=== PATIENT | male | born 1995 | race Caucasian/White ===

== ENCOUNTER 2019-03-01 11:25 | Inpatient (IN) | payer BC, OTHER ==
--- NOTE | 2019-03-01 11:43 | EDM.PDOC ---
ED HPI GENERAL MEDICAL PROBLEM - General Chief Complaint: ENT Problem Stated Complaint: sore throat Time Seen by Provider: 03/01/19 11:35 Source of Information: Reports: Patient, Old Records ([facility] EMR. No paper hospital chart available.) History Limitations: Reports: No Limitations - History of Present Illness INITIAL COMMENTS - FREE TEXT/NARRATIVE: The patient was brought to the emergency room via private automobile by his friends for evaluation of a 68 week history of a sharp 9/10 sore throat with patient apparently evaluated at the [facility] in [place] on 2 separate occasions, including 3 in 5 weeks ago with apparent negative strep screens in that facility. He denies any known exposure to infection, including strep, mono, etc. He has had some occasional fever and chills, however has not measured his temperature or taken any recent antipyretic medications. Patient did take some OTC Dayquil at 6 AM this morning. Patient has also had nonspecific polydipsia during the last 4 days with no history of gross hematuria , colic, or other UTI symptoms. The patient denies any chest pain/pressure, heart flutter, dizziness, orthostasis, orthopnea, diaphoresis, paresthesias, recent decreased exercise tolerance, or any other anginal-type symptoms. He does have a previous history of known hypertension, however, has been noncompliant with his medical therapy. No recent history of abdominal pain, heartburn, nausea, diarrhea, melena, gross hematochezia, or any food intolerance , including fatty foods, etc.,, although occasional emesis, including yesterday evening when coughing. The patient has had a greenish productive cough during the last several weeks with no wheezing, dyspnea, etc. Onset: Gradual Duration: Week(s): (as above), Constant, Getting Worse Location: Reports: Head (sore throat). Denies: Face, Neck, Chest, Abdomen, Back , Upper Extremity, Left, Upper Extremity, Right, Radiates to Quality: Reports: Same as Previous Episode, Sharp Severity: Severe Improves with: Reports: None Worsens with: Reports: None Context: Reports: Other (as above). Denies: Sick Contact, Trauma Associated Symptoms: Reports: Cough, cough w sputum, Fever/Chills, Nausea/ Vomiting. 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 [No Known Home Meds] 12/12/13 [History] Past Medical History HEENT History: Reports: Allergic Rhinitis, Impaired Vision, Other (See Below). Denies: Hard of Hearing, Otitis Media, Retinal Detachment Other HEENT History: recurrent strep throat. allergic rhinitis to pollen. Patient wears glasses. Cardiovascular History: Reports: Hypertension, Other (See Below). Denies: Afib , Aneurysm, Arrhythmia, Blood Clots/VTE/DVT, CAD, Heart Murmur, High Cholesterol , Syncope Other Cardiovascular History: He does not know his cholesterol status. Respiratory History: Reports: Bronchitis, Recurrent, Pneumonia, Recurrent. Denies: Asthma, COPD, Intubation, Previous, PE, Pneumothorax, Sleep Apnea, TB Gastrointestinal History: Reports: GERD. Denies: Celiac Disease, Cholelithiasis , Chronic Constipation, Chronic Diarrhea, GI Bleed, Hepatitis, Hiatal Hernia, Inflammatory Bowel Disease, Irritable Bowel Syndrome, Jaundice, Pancreatitis, PUD Genitourinary History: Denies: Acute Renal Failure, Chronic Renal Insuffiency, Renal Calculus, STD, Urinary Incontinence, UTI, Recurrent Musculoskeletal History: Reports: Fracture, Other (See Below). Denies: Amputation, Arthritis, Back Pain, Chronic, Gout, Neck Pain, Chronic, Osteoarthritis, RA, SLE Other Musculoskeletal History: right hand third, fourth and fifth metacarpal fractures on 08/29/17 with subsequent surgery as below; left wrist fracture at age 12 on 03/03/06. right wrist fracture at age 15. Neurological History: Reports: None. Denies: Cerebral Aneurysms, Concussion, CVA, Headaches, Chronic, Head Trauma, Migraines, MS, Seizure, TIA, Vertigo Psychiatric History: Reports: ADD, ADHD, Other (See Below). Denies: Abuse, Victim of, Anxiety, Depression, Psych Hospitalization(s), PTSD, Suicide Attempt , Suicidal Ideation Other Psychiatric History: no current medical therapy for ADHD. Endocrine/Metabolic History: Reports: None, Obesity/BMI 30+. Denies: Diabetes, Type I, Diabetes, Type II, Hypothyroidism, IDDM Hematologic History: Reports: None. Denies: Anemia, Blood Transfusion(s), Iron Deficiency Immunologic History: Reports: None. Denies: AIDS, HIV, SLE Oncologic (Cancer) History: Reports: None. Denies: Basal Cell Carcinoma, Hodgkin's Lymphoma, Leukemia, Lymphoma, Malignant Melanoma, Non-Hodgkin's Lymphoma, Squamous Cell Carcinoma Dermatologic History: Denies: Eczema, Psoriasis - Infectious Disease History Infectious Disease History: Reports: Meningitis (viral meningitis at 10 days of age.). Denies: C-Difficile, Chicken Pox, Measles, Mononucleosis, MRSA, Mumps, Pertussis (Whooping Cough), Rheumatic Fever, Rubella, Scarlet Fever, Shingles, TB, VRE - Past Surgical History Head Surgeries/Procedures: Reports: None HEENT Surgical History: Reports: Oral Surgery, Other (See Below). Denies: Adenoidectomy, Eye Surgery, Laser Surgery, LASIK, Myringotomy w Tube(s), Naso- Sinus Surgery, Tonsillectomy Other HEENT Surgeries/Procedures: [place] teeth extraction 4 on 06/05/18. Cardiovascular Surgical History: Reports: None. Denies: Varicose Respiratory Surgical History: Reports: None. Denies: Thoracentesis GI Surgical History: Reports: None. Denies: Appendectomy, Cholecystectomy, Colonoscopy, EGD, Hernia, Abdominal, Hernia, Inguinal, Hernia Repair/Other Male Surgical History: Reports: Circumcision, Other (See Below). Denies: Vasectomy Other Male Surgeries/Procedures: circumcision as an infant. Neurological Surgical History: Reports: None. Denies: C-Spine, Discectomy, Laminectomy, Lumbar Spine, Sacral Spine, Spinal Fusion, Thoracic Spine, Vertebroplasty Musculoskeletal Surgical History: Reports: ORIF, Other (See Below). Denies: Arthroscopic Procedure, Carpal Tunnel, Ganglion Cyst, Shoulder Surgery Other Musculoskeletal Surgeries/Procedures:: ORIF of right metacarpal fractures as above on 09/05/17. Oncologic Surgical History: Reports: None Dermatological Surgical History: Reports: None - Past Imaging History Past Imaging History: Reports: CAT Scan (CT of the abdomen and pelvis on ..) Social & Family History - Family History HEENT: Reports: None. Denies: Glaucoma, Macular Degeneration, Retinal Detachment Cardiac: Reports: Hypertension, Other (See Below). Denies: Afib, Aneurysm, Arrhythmia, Blood Clots/VTE/DVT, Bypass, CAD, Heart Failure, Heart Murmur, High Cholesterol, SC, PVD/COD, Stent, Syncope Other Cardiac Family History: hypertension in father and paternal grandfather. Respiratory: Reports: None. Denies: Asthma, COPD, PE, Pneumothorax, Sleep Apnea GI: Reports: None. Denies: Celiac Disease, Cholelithiasis, Colon Polyps, GERD, Inflammatory Bowel Disease, Irritable Bowel Syndrome, PUD : Reports: None. Denies: Renal Calculus, Renal Disease/Insufficiency OBGYN: Reports: None. Denies: Endometriosis, Recurrent Spontaneous Musculoskeletal: Reports: None. Denies: Arthritis, Gout, RA, SLE Neurological: Reports: None. Denies: Alzheimers Disease, Cerebral Aneurysms, CVA, Dementia, Migraines, MS, Parkinson's, Seizure, TIA Psychiatric: Reports: None. Denies: Abuse, Victim of, ADD, ADHD, Anxiety, Depression, Psych Hospitalization(s), PTSD, Suicide Attempt Endocrine/Metabolic: Reports: None. Denies: Diabetes, Type I, Diabetes, type II , Diabetes Mellitus, Type 3c, Hypothyroidism, IDDM Hematologic: Reports: None. Denies: Anemia, SLE Immunologic: Reports: None. Denies: AIDS, HIV, SLE Dermatologic: Reports: None. Denies: Eczema, Psoriasis Oncologic: Reports: None. Denies: Colon, Hodgkin's Lymphoma, Leukemia, Lymphoma , Non-Hodgkin's Lymphoma, Prostate, Skin - Tobacco Use Smoking Status *Q: Never Smoker Tobacco Use Within Last Twelve Months: No Used Tobacco, but Quit: No Smoking Cessation Information Provided To Patient: No Second Hand Smoke Exposure: No Second Hand Smoke Education Provided: No - Caffeine Use Caffeine Use: Reports: Coffee (1 cup 2 times per week any), Soda (3 cans per week). Denies: Energy Drinks, Tea - Alcohol Use Alcohol Use History: Yes Days Per Week of Alcohol Use: 2 Number of Drinks Per Day: 4 Number of Drinks Per Day Comment: usually beer. No previous DWIs, problems with alcohol abuse, etc. 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 ED EXAM, GENERAL - Physical Exam Exam: See Below Exam Limited By: No Limitations General Appearance: Alert, WD/WN, No Apparent Distress, Anxious (mild) Eye Exam: Bilateral Eye: EOMI, Normal Inspection (patient wearing glasses. No nystagmus), PERRL, Other (borderline scleral icterus) Ears: Normal External Exam (Scleral icterus), Normal Canal, Hearing Grossly Normal, Normal TMs Nose: Normal Inspection, Normal Mucosa, No Blood Throat/Mouth: Normal Lips, Normal Teeth, Normal Gums, Normal Voice, No Airway Compromise, Other (mild dry oral mucosa). No: Normal Oropharynx (+3 erythema and tonsillar enlargement with pinpoint white exudates but no peritonsillar abscess), Dysphagia, Perioral Cyanosis Head: Atraumatic, Normocephalic. No: Facial Swelling, Facial Tenderness, Sinus Tenderness Neck: Normal Inspection, Supple, Non-Tender, Full Range of Motion. No: Carotid Bruit, Lymphadenopathy (L), Lymphadenopathy (R), Thyromegaly Respiratory/Chest: No Respiratory Distress, Lungs Clear, Normal Breath Sounds, No Accessory Muscle Use, Chest Non-Tender. No: Pleural Rub, Retractions Cardiovascular: Normal Peripheral Pulses, No Edema, No Gallop, No JVD, No Murmur , No Rub, Tachycardia (regular rhythm). No: Diastolic Murmur, Gallop/S3, Gallop /S4, Friction Rub Peripheral Pulses: 2+: Radial (L), Radial (R), Dorsalis Pedis (L), Dorsalis Pedis (R) GI/Abdominal: Normal Bowel Sounds, Soft, Non-Tender, No Organomegaly, No Distention, No Abnormal Bruit, No Mass. No: Guarding (Male) Exam: Deferred Rectal (Males) Exam: Deferred Back Exam: Normal Inspection, Full Range of Motion. No: CVA Tenderness (L), CVA Tenderness (R), Muscle Spasm Extremities: Normal Inspection, Normal Range of Motion, Non-Tender, No Pedal Edema, Normal Capillary Refill. No: Wilman's Sign Neurological: Alert, Oriented, CN II-XII Intact, Normal Cognition, Normal Gait, No Motor/Sensory Deficits Psychiatric: Anxious (mild). No: Depressed Mood Skin Exam: Warm, Dry, Intact, Normal Color, No Rash, Stud(s) (auricles bilaterally), Tattoo(s) (multiple). No: Diaphoretic, Jaundice, Rash, Wound/ Incision Lymphatic: No Adenopathy Course - Vital Signs Text/Narrative:: Vital Signs - 24 hr 03/01/19 03/01/19 03/01/19 11:26 11:39 12:06 Temperature [ 37.4 C Oral] Pulse, 135 H Peripheral Pulse, 137 H Peripheral [ Left Brachial] Respiratory 16 Rate Blood Pressure 161/103 H Blood Pressure 154/108 H 161/103 H [Left Upper Arm ] O2 Sat by Pulse 98 Oximetry 03/01/19 03/01/19 03/01/19 12:15 12:27 12:30 Temperature [ Oral] Pulse, 114 H Peripheral Pulse, 111 H 116 H Peripheral [ Left Brachial] Respiratory 20 20 Rate Blood Pressure 164/107 H Blood Pressure 166/110 H 164/107 H [Left Upper Arm ] O2 Sat by Pulse 96 98 Oximetry 03/01/19 12:45 Temperature [ Oral] Pulse, Peripheral Pulse, 115 H Peripheral [ Left Brachial] Respiratory 25 H Rate Blood Pressure Blood Pressure 163/107 H [Left Upper Arm ] O2 Sat by Pulse 98 Oximetry Last Recorded V/S: Last Vital Signs Temp 37.4 C 03/01/19 11:26 Pulse 114 H 03/01/19 12:27 Resp 16 03/01/19 11:26 BP 164/107 H 03/01/19 12:27 Pulse Ox 98 03/01/19 11:26 - Orders/Labs/Meds Orders: Active Orders 24 hr Category Date Time Status Cardiac Monitoring [RC] . DIRECTED Care 03/01/19 11:44 Active Peripheral IV Care [RC] . DIRECTED Care 03/01/19 11:52 Active Abdomen Series w Chest 1V [CR] Routine Exams 03/01/19 12:00 Taken CULTURE BLOOD [BC] Stat Lab 03/01/19 11:45 Received CULTURE BLOOD [BC] Stat Lab 03/01/19 12:36 Received CULTURE STREP A CONFIRMATION [] Stat Lab 03/01/19 11:40 Results STREP SCRN A RAPID W CULT CONF [] Stat Lab 03/01/19 11:40 Results Lactated Ringers [Ringers, Lactated] 1,000 ml Med 03/01/19 12:06 Active IV .BOLUS Sodium Chloride 0.9% [Saline Flush] Med 03/01/19 11:52 Active 10 ml FLUSH ASDIRECTED PRN Blood Culture x2 Reflex Set [OM.PC] Urgent Oth 03/01/19 12:09 Ordered Obtain Past Medical Record [OM.PC] Routine Oth 03/01/19 11:43 Active Peripheral IV Insertion Adult [OM.PC] Routine Ot 03/01/19 11:52 Ordered Medication Orders Lactated Ringer's (Ringers, Lactated) 1,000 mls @ 999 mls/hr IV .BOLUS ONE Stop: 03/01/19 13:06 Last Admin: 03/01/19 12:15 Dose: 999 mls/hr Sodium Chloride (Saline Flush) 10 ml FLUSH ASDIRECTED PRN PRN Reason: Keep Vein Open Last Admin: 03/01/19 12:07 Dose: 10 ml Admin: 03/01/19 12:05 Dose: 10 ml Labs: Laboratory Tests 03/01/19 03/01/19 03/01/19 Range/Units 11:45 11:45 11:45 WBC 18.5 H (4.0-10.2) K/uL RBC 6.30 H (4.33-5.41) M/uL Hgb 18.2 H* D (13.1-16.8) g/dL Hct 52.5 H (39.0-49.0) % MCV 83.3 L (84.0-98.0) fL MCH 28.9 (28.2-33.3) pg MCHC 34.7 (31.7-36.0) g/dL RDW 16.5 H (11.2-14.1) % Plt Count 165 D (150-350) K/uL Neut % (Auto) 32.0 L (45.0-80.0) % Lymph % (Auto) 58.2 H (10.0-50.0) % [place] % (Auto) 9.4 (2.0-14.0) % Eos % (Auto) 0.1 (0.0-5.0) % Baso % (Auto) 0.3 (0.0-2.0) % Neut # (Auto) 5.92 (1.40-7.00) K/uL Lymph # (Auto) 10.79 H (0.50-3.50) K/uL [place] # (Auto) 1.75 H (0.00-1.00) K/uL Eos # (Auto) 0.02 (0.00-0.50) K/uL Baso # (Auto) 0.06 (0.00-0.20) K/uL Sodium 133 L (136-145) mmol/L Potassium 4.0 (3.5-5.1) mmol/L Chloride 97 L (98-107) mmol/L Carbon Dioxide 24.6 (21.0-32.0) mmol/L BUN 5 L (7-18) mg/dL Creatinine 0.88 (0.51-1.17) mg/dL Est Cr Clr Drug Dosing 145.74 mL/min Estimated GFR (MDRD) > 60 mL/min Glucose 105 (74-106) mg/dL Hemoglobin A1c 5.4 (4.3-5.7) % Lactic Acid (0.4-2.0) mmol/L Calcium 8.7 (8.5-10.1) mg/dL Total Bilirubin 3.6 H (0.2-1.0) mg/dL AST 174 H (15-37) U/L ALT 316 H (12-78) U/L Alkaline Phosphatase 225 H (46-116) IU/L Total Protein 8.3 H (6.4-8.2) g/dL Albumin 3.5 (3.4-5.0) g/dL TSH, Ultra Sensitive (0.358-3.740) mIU/mL Monoscreen (NEGATIVE) 03/01/19 03/01/19 03/01/19 Range/Units 11:45 11:45 11:45 WBC (4.0-10.2) K/uL RBC (4.33-5.41) M/uL Hgb (13.1-16.8) g/dL Hct (39.0-49.0) % MCV (84.0-98.0) fL MCH (28.2-33.3) pg MCHC (31.7-36.0) g/dL RDW (11.2-14.1) % Plt Count (150-350) K/uL Neut % (Auto) (45.0-80.0) % Lymph % (Auto) (10.0-50.0) % [place] % (Auto) (2.0-14.0) % Eos % (Auto) (0.0-5.0) % Baso % (Auto) (0.0-2.0) % Neut # (Auto) (1.40-7.00) K/uL Lymph # (Auto) (0.50-3.50) K/uL [place] # (Auto) (0.00-1.00) K/uL Eos # (Auto) (0.00-0.50) K/uL Baso # (Auto) (0.00-0.20) K/uL Sodium (136-145) mmol/L Potassium (3.5-5.1) mmol/L Chloride (98-107) mmol/L Carbon Dioxide (21.0-32.0) mmol/L BUN (7-18) mg/dL Creatinine (0.51-1.17) mg/dL Est Cr Clr Drug Dosing mL/min Estimated GFR (MDRD) mL/min Glucose (74-106) mg/dL Hemoglobin A1c (4.3-5.7) % Lactic Acid 1.3 (0.4-2.0) mmol/L Calcium (8.5-10.1) mg/dL Total Bilirubin (0.2-1.0) mg/dL AST (15-37) U/L ALT (12-78) U/L Alkaline Phosphatase (46-116) IU/L Total Protein (6.4-8.2) g/dL Albumin (3.4-5.0) g/dL TSH, Ultra Sensitive 0.875 (0.358-3.740) mIU/mL Monoscreen Positive H (NEGATIVE) Meds: Medications Generic Name Dose Route Start Last Admin Trade Name Freq PRN Reason Stop Dose Admin Lactated Ringer's 1,000 mls @ 999 mls/hr 03/01/19 12:06 03/01/19 12:15 Ringers, Lactated IV 03/01/19 13:06 999 mls/hr .BOLUS ONE Administration Sodium Chloride 10 ml 03/01/19 11:52 03/01/19 12:07 Saline Flush FLUSH 10 ml ASDIRECTED PRN Administration Keep Vein Open Discontinued Medications Generic Name Dose Route Start Last Admin Trade Name Freq PRN Reason Stop Dose Admin Methylprednisolone Sodium Succinate 125 mg 03/01/19 12:20 03/01/19 12:30 Solu-Medrol IVPUSH 03/01/19 12:21 125 mg ONETIME ONE Administration Metoprolol Succinate 50 mg 03/01/19 12:15 03/01/19 12:27 Toprol Xl PO 03/01/19 12:16 50 mg ONETIME ONE Administration Metoprolol Tartrate 5 mg 03/01/19 11:51 03/01/19 12:06 Lopressor IVPUSH 03/01/19 11:52 5 mg ONETIME ONE Administration Ondansetron HCl 4 mg 03/01/19 12:00 03/01/19 12:04 Zofran IVPUSH 03/01/19 12:01 4 mg ONETIME ONE Administration - Radiology Interpretation Free Text/Narrative:: heart monitor initially showed moderate sinus tachycardia with heart rate in the 140s to 150s with subsequent improvement to the 110s after medical therapy as below. No ectopy or arrhythmia. acute abdominal x-rays shows evidence of possible hepatomegaly with moderate diffuse nonspecific increased bowel gaseous pattern without free air, fluid levels, ileus, obstruction, cardiomegaly, CHF, pulmonary infiltrates, pneumothorax, etc. Departure - Departure Time of Disposition: 12:55 Disposition: Admitted As Inpatient 68 Condition: Good Clinical Impression: Elevated LFTs, Dehydration, Sinus tachycardia Mononucleosis Qualifiers: Infectious mononucleosis etiology: unspecified organism Infectious mononucleosis complication: other complications Qualified Code(s): B27.99 - Infectious mononucleosis, unspecified with other complication ADHD Qualifiers: Attention deficit-hyperactivity disorder type: predominantly inattentive Qualified Code(s): F90.0 - Attention-deficit hyperactivity disorder, predominantly inattentive type Hypertension Qualifiers: Hypertension type: essential hypertension Qualified Code(s): I10 - Essential ( primary) hypertension - Discharge Information *PRESCRIPTION DRUG MONITORING PROGRAM REVIEWED*: Not Applicable *COPY OF PRESCRIPTION DRUG MONITORING REPORT IN PATIENT [facility]: Not Applicable Forms: ED Department Discharge Care Plan Goals: See plan - Problem List & Annotations (1) Mononucleosis SNOMED Code(s): 342987385 Code(s): B27.90 - INFECTIOUS MONONUCLEOSIS, UNSPECIFIED WITHOUT COMPLICATION Status: Acute Priority: High Onset Date: ~03/01/19 Annotation/Comment: : symptoms have been present for 6 to 8 weeks as above. His significant other does have a history of mononucleosis, however no current symptoms. The patient was encouraged to have his significant other obtain a mononucleosis titer NOMI with other individuals also to be screened, if exposed. Secondary to significant LFTs elevation, significant clinical findings, etc. high-dose IV Solu-Medrol therapy was initiated in the emergency room. Only mild low-grade fever with no direct evidence of bacterial infection or indication for antibiotics at this time. Blood cultures x 2 were collected. Note negative strep screen. Qualifiers: Infectious mononucleosis etiology: unspecified organism Infectious mononucleosis complication: other complications Qualified Code(s): B27.99 - Infectious mononucleosis, unspecified with other complication (2) Elevated LFTs SNOMED Code(s): 729714379, 882620380 Code(s): R94.5 - ABNORMAL RESULTS OF LIVER FUNCTION STUDIES Status: Acute Priority: High Onset Date: 03/01/19 Annotation/Comment:: moderately elevated LFTs, including hyperbilirubinemia, likely secondary to his mononucleosis. Evidence of hepatomegaly by x-ray with ultrasound not available in this facility until next week.. Probable abdominal ultrasound on an outpatient basis with injury precautions to be given at discharge. Repeat blood work in the a.m. CT scan of the abdomen depending on his clinical course. (3) Dehydration SNOMED Code(s): 94219836 Code(s): E86.0 - DEHYDRATION Status: Acute Priority: High Onset Date: 03/01/19 Annotation/Comment:: 1 L IV bolus of lactated Ringer's given in the emergency room. Continue aggressive IV hydration during the initial phases of this hospitalization. (4) Sinus tachycardia SNOMED Code(s): 23138492 Code(s): R00.0 - TACHYCARDIA, UNSPECIFIED Status: Acute Priority: High Onset Date: 03/01/19 Annotation/Comment:: IV Lopressor and oral Toprol-XL given as above. In addition note aggressive IV hydration. Continue telemetry during initial phases of this hospitalization. (5) ADHD SNOMED Code(s): 689407451 Code(s): F90.9 - ATTENTION-DEFICIT HYPERACTIVITY DISORDER, UNSPECIFIED TYPE Status: Chronic Priority: Medium Annotation/Comment:: not currently under medical therapy. Stable by patient history. Observe for now. Qualifiers: Attention deficit-hyperactivity disorder type: predominantly inattentive Qualified Code(s): F90.0 - Attention-deficit hyperactivity disorder, predominantly inattentive type (6) Hypertension SNOMED Code(s): 75478982 Code(s): I10 - ESSENTIAL (PRIMARY) HYPERTENSION Status: Acute Priority: High Annotation/Comment:: significantly elevated blood pressure in the emergency room with IV Lopressor and oral Toprol-XL therapy initiated. Patient has long been noncompliant with previous medical therapy. Qualifiers: Hypertension type: essential hypertension Qualified Code(s): I10 - Essential (primary) hypertension - Problem List Review Problem List Initiated/Reviewed/Updated: Yes - My Orders Last 24 Hours: My Active Orders 03/01/19 11:40 CULTURE STREP A CONFIRMATION [RM] Stat STREP SCRN A RAPID W CULT CONF [RM] Stat 03/01/19 11:43 Obtain Past Medical Record [OM.PC] Routine 03/01/19 11:44 Cardiac Monitoring [RC] . DIRECTED 03/01/19 11:45 CULTURE BLOOD [BC] Stat 03/01/19 11:52 Peripheral IV Care [RC] . DIRECTED Sodium Chloride 0.9% [Saline Flush] 10 ml FLUSH ASDIRECTED PRN Peripheral IV Insertion Adult [OM.PC] Routine 03/01/19 12:00 Abdomen Series w Chest 1V [CR] Routine 03/01/19 12:06 Lactated Ringers [Ringers, Lactated] 1,000 ml IV .BOLUS 03/01/19 12:09 Blood Culture x2 Reflex Set [OM.PC] Urgent 03/01/19 12:36 CULTURE BLOOD [BC] Stat - Assessment/Plan Admission H&P: Please use this note as an admission H&P Last 24 Hours: My Active Orders 03/01/19 11:40 CULTURE STREP A CONFIRMATION [RM] Stat STREP SCRN A RAPID W CULT CONF [RM] Stat 03/01/19 11:43 Obtain Past Medical Record [OM.PC] Routine 03/01/19 11:44 Cardiac Monitoring [RC] . DIRECTED 03/01/19 11:45 CULTURE BLOOD [BC] Stat 03/01/19 11:52 Peripheral IV Care [RC] . DIRECTED Sodium Chloride 0.9% [Saline Flush] 10 ml FLUSH ASDIRECTED PRN Peripheral IV Insertion Adult [OM.PC] Routine 03/01/19 12:00 Abdomen Series w Chest 1V [CR] Routine 03/01/19 12:06 Lactated Ringers [Ringers, Lactated] 1,000 ml IV .BOLUS 03/01/19 12:09 Blood Culture x2 Reflex Set [OM.PC] Urgent 03/01/19 12:36 CULTURE BLOOD [BC] Stat Assessment:: as above Plan: as above. Extensive precautions were given to the patient, who is in agreement with the treatment plan. The patient will require about 3-4 days of inpatient/ acute care secondary to multiple health problems as above.
[2019-03-01] MEDS ORDERED: Metoprolol Tartrate 5 MG/5 ML SDV IVPUSH ONE (11:51)
[2019-03-01] MEDS ORDERED: Ondansetron 4 MG/2 ML SDV IVPUSH ONE (12:00)
[2019-03-01 12:03] LABS: HEMOGLOBIN A1C 5.4 % (4.3-5.7)
[2019-03-01] MEDS: Sodium Chloride 0.9% 10 ML Syringe FLUSH PRN ×2 (12:05→12:07)
[2019-03-01] MEDS ORDERED: Lactated Ringers 1,000 ML IV ONE (12:06)
[2019-03-01] MEDS ORDERED: Metoprolol Succinate 50 MG Tab.ER PO ONE (12:15)
[2019-03-01 12:17] LABS: CHLORIDE,CL 97 mmol/L (98-107); SODIUM,NA 133 mmol/L (136-145)
[2019-03-01] MEDS ORDERED: methylPREDNISolone Sodium Succinate 125 MG/2 ML SDV IVPUSH ONE (12:20)
[2019-03-01] MEDS ORDERED: Sodium Chloride 0.9% 10 ML Syringe FLUSH PRN (13:11)
[2019-03-01] MEDS ORDERED: Temazepam 15 MG Cap PO PRN (13:11)
[2019-03-01] MEDS ORDERED: Ondansetron 4 MG/2 ML SDV IVPUSH PRN (13:11)
[2019-03-01] MEDS ORDERED: Lidocaine 2% Viscous Solution 15 ML Cup PO PRN (13:15)
[2019-03-01] MEDS: Pantoprazole 40 MG Vial IVPUSH SCH (14:07)
[2019-03-01] MEDS: Lactated Ringers 1,000 ML IV SCH (14:07)
[2019-03-01] MEDS ORDERED: Labetalol 20 MG/4 ML Syringe IVPUSH ONE (21:11)
[2019-03-01] MEDS: Acetaminophen 325 MG Tab PO PRN (21:37)
[2019-03-01] MEDS: amLODIPine 5 MG Tab PO SCH (21:38)
[2019-03-02] MEDS: Sodium Chloride 0.9% 10 ML Syringe FLUSH PRN ×3 (00:08→23:08)
[2019-03-02] MEDS: methylPREDNISolone Sodium Succinate 125 MG/2 ML SDV IVPUSH SCH ×3 (00:08→23:08)
[2019-03-02] MEDS: Pantoprazole 40 MG Vial IVPUSH SCH ×2 (00:14→13:03)
[2019-03-02] MEDS: Lactated Ringers 1,000 ML IV SCH ×3 (00:14→23:07)
[2019-03-02 07:55] LABS: CHLORIDE,CL 101 mmol/L (98-107); SODIUM,NA 138 mmol/L (136-145)
[2019-03-02] MEDS ORDERED: Metoprolol Succinate 50 MG Tab.ER PO SCH (08:00)
[2019-03-02] MEDS ORDERED: Diatrizoate Meglumine/Diatrizoate Sodium 37% 30 ML Bottle PO ONE (08:49)
[2019-03-02] MEDS ORDERED: Metoprolol Succinate 25 MG Tab.ER PO ONE (08:51)
--- NOTE | 2019-03-02 08:59 | PCM.PN ---
- General Info Date of Service: 03/02/19 Admission Dx/Problem (Free Text): 1. Mononucleosis 2. LFTs elevation 3. Hypertension 4. Dehydration 5. Sinus tachycardia Functional Status: Reports: Pain Controlled, Tolerating Diet, Ambulating, Urinating. Denies: New Symptoms, Incentive Spirometry Pain Score: 0 - Review of Systems General: Reports: No Symptoms. Denies: Fever, Weakness, Fatigue, Malaise, Chills, Night Sweats, Appetite (Appetite good) HEENT: Reports: Sore Throat (Improved). Denies: Ear Pain, Eye Pain, Headaches, Post Nasal Drip, Sinus Congestion, Rhinitis, Visual Changes Pulmonary: Reports: No Symptoms. Denies: Shortness of Breath, Pleuritic Chest Pain, Cough, Sputum, Hemoptysis, Wheezing Cardiovascular: Reports: No Symptoms. Denies: Chest Pain, Palpitations, Dyspnea on Exertion, Orthopnea, PND, Edema, Lightheadedness Gastrointestinal: Reports: No Symptoms, Other (No bowel movement during this hospitalization to this point). Denies: Abdominal Pain, Constipation, Decreased Appetite, Diarrhea, Difficulty Swallowing, Flatus, Hematochezia, Melena, Nausea, Vomiting Genitourinary: Reports: No Symptoms. Denies: Dysuria, Frequency, Burning, Pain , Urgency, Hematuria, Retention, Flank Pain Musculoskeletal: Reports: No Symptoms. Denies: Neck Pain, Shoulder Pain, Arm Pain, Back Pain, Leg Pain Skin: Reports: No Symptoms. Denies: Jaundice, Diaphoresis, Bruising, Pruritis Neurological: Reports: No Symptoms. Denies: Confusion, Dizziness, Headache, Numbness, Paresthesia, Tingling, Tremors, Weakness Psychiatric: Reports: No Symptoms. Denies: Confusion, Depression, Anxiety, Agitation, Cravings, Hallucinations - Patient Data Vitals - Most Recent: Last Vital Signs Temp 36.1 C 03/02/19 04:45 Pulse 85 03/02/19 04:45 Resp 16 03/02/19 04:45 BP 158/87 H 03/02/19 04:45 Pulse Ox 96 03/02/19 04:45 Vital Signs - 24 hr 03/01/19 03/01/19 03/01/19 11:26 11:39 12:06 Temperature [ 37.4 C Oral] Temperature [ Temporal] Pulse, 135 H Peripheral Pulse, 137 H Peripheral [ Left Brachial] Pulse, Peripheral [ Left Pulse Oximetry] Respiratory 16 Rate Blood Pressure 161/103 H Blood Pressure 154/108 H 161/103 H [Left Upper Arm ] Blood Pressure [Right Upper Arm] O2 Sat by Pulse 98 Oximetry 03/01/19 03/01/19 03/01/19 12:15 12:27 12:30 Temperature [ Oral] Temperature [ Temporal] Pulse, 114 H Peripheral Pulse, 111 H 116 H Peripheral [ Left Brachial] Pulse, Peripheral [ Left Pulse Oximetry] Respiratory 20 20 Rate Blood Pressure 164/107 H Blood Pressure 166/110 H 164/107 H [Left Upper Arm ] Blood Pressure [Right Upper Arm] O2 Sat by Pulse 96 98 Oximetry 03/01/19 03/01/19 03/01/19 12:45 13:10 18:00 Temperature [ 36.3 C Oral] Temperature [ Temporal] Pulse, Peripheral Pulse, 115 H 114 H Peripheral [ Left Brachial] Pulse, Peripheral [ Left Pulse Oximetry] Respiratory 25 H 18 Rate Blood Pressure Blood Pressure 163/107 H [Left Upper Arm ] Blood Pressure 177/109 H [Right Upper Arm] O2 Sat by Pulse 98 97 95 Oximetry 03/01/19 03/02/19 03/02/19 21:38 00:00 04:45 Temperature [ 36.1 C Oral] Temperature [ 36.1 C Temporal] Pulse, Peripheral Pulse, Peripheral [ Left Brachial] Pulse, 90 85 Peripheral [ Left Pulse Oximetry] Respiratory 16 16 Rate Blood Pressure 175/105 H Blood Pressure [Left Upper Arm ] Blood Pressure 162/92 H 158/87 H [Right Upper Arm] O2 Sat by Pulse 96 96 Oximetry Weight - Most Recent: 101.469 kg I&O - Last 24 Hours: Intake & Output 03/01/19 03/02/19 03/02/19 22:59 06:59 14:59 Intake Total 2452 Output Total 1974 550 Balance -1974 1901 Imaging Impressions - Last 24 Hours: 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 Lab Results Last 24 Hours: Laboratory Results - last 24 hr 03/01/19 03/01/19 03/01/19 Range/Units 11:45 11:45 11:45 WBC 18.5 H (4.0-10.2) K/uL RBC 6.30 H (4.33-5.41) M/uL Hgb 18.2 H* D (13.1-16.8) g/dL Hct 52.5 H (39.0-49.0) % MCV 83.3 L (84.0-98.0) fL MCH 28.9 (28.2-33.3) pg MCHC 34.7 (31.7-36.0) g/dL RDW 16.5 H (11.2-14.1) % Plt Count 165 D (150-350) K/uL Neut % (Auto) 32.0 L (45.0-80.0) % Lymph % (Auto) 58.2 H (10.0-50.0) % [place] % (Auto) 9.4 (2.0-14.0) % Eos % (Auto) 0.1 (0.0-5.0) % Baso % (Auto) 0.3 (0.0-2.0) % Neut # (Auto) 5.92 (1.40-7.00) K/uL Lymph # (Auto) 10.79 H (0.50-3.50) K/uL [place] # (Auto) 1.75 H (0.00-1.00) K/uL Eos # (Auto) 0.02 (0.00-0.50) K/uL Baso # (Auto) 0.06 (0.00-0.20) K/uL PT (9.5-12.0) SEC INR APTT (21.0-31.3) SEC Sodium 133 L (136-145) mmol/L Potassium 4.0 (3.5-5.1) mmol/L Chloride 97 L (98-107) mmol/L Carbon Dioxide 24.6 (21.0-32.0) mmol/L BUN 5 L (7-18) mg/dL Creatinine 0.88 (0.51-1.17) mg/dL Est Cr Clr Drug Dosing 145.74 mL/min Estimated GFR (MDRD) > 60 mL/min Glucose 105 (74-106) mg/dL Hemoglobin A1c 5.4 (4.3-5.7) % Lactic Acid (0.4-2.0) mmol/L Calcium 8.7 (8.5-10.1) mg/dL Total Bilirubin 3.6 H (0.2-1.0) mg/dL Direct Bilirubin (0.0-0.2) mg/dL Indirect Bilirubin AST 174 H (15-37) U/L ALT 316 H (12-78) U/L Alkaline Phosphatase 225 H (46-116) IU/L Total Protein 8.3 H (6.4-8.2) g/dL Albumin 3.5 (3.4-5.0) g/dL Amylase (25-115) U/L Lipase (73-393) U/L TSH, Ultra Sensitive (0.358-3.740) mIU/mL Monoscreen (NEGATIVE) 03/01/19 03/01/19 03/01/19 Range/Units 11:45 11:45 11:45 WBC (4.0-10.2) K/uL RBC (4.33-5.41) M/uL Hgb (13.1-16.8) g/dL Hct (39.0-49.0) % MCV (84.0-98.0) fL MCH (28.2-33.3) pg MCHC (31.7-36.0) g/dL RDW (11.2-14.1) % Plt Count (150-350) K/uL Neut % (Auto) (45.0-80.0) % Lymph % (Auto) (10.0-50.0) % [place] % (Auto) (2.0-14.0) % Eos % (Auto) (0.0-5.0) % Baso % (Auto) (0.0-2.0) % Neut # (Auto) (1.40-7.00) K/uL Lymph # (Auto) (0.50-3.50) K/uL [place] # (Auto) (0.00-1.00) K/uL Eos # (Auto) (0.00-0.50) K/uL Baso # (Auto) (0.00-0.20) K/uL PT (9.5-12.0) SEC INR APTT (21.0-31.3) SEC Sodium (136-145) mmol/L Potassium (3.5-5.1) mmol/L Chloride (98-107) mmol/L Carbon Dioxide (21.0-32.0) mmol/L BUN (7-18) mg/dL Creatinine (0.51-1.17) mg/dL Est Cr Clr Drug Dosing mL/min Estimated GFR (MDRD) mL/min Glucose (74-106) mg/dL Hemoglobin A1c (4.3-5.7) % Lactic Acid 1.3 (0.4-2.0) mmol/L Calcium (8.5-10.1) mg/dL Total Bilirubin (0.2-1.0) mg/dL Direct Bilirubin (0.0-0.2) mg/dL Indirect Bilirubin AST (15-37) U/L ALT (12-78) U/L Alkaline Phosphatase (46-116) IU/L Total Protein (6.4-8.2) g/dL Albumin (3.4-5.0) g/dL Amylase (25-115) U/L Lipase (73-393) U/L TSH, Ultra Sensitive 0.875 (0.358-3.740) mIU/mL Monoscreen Positive H (NEGATIVE) 03/02/19 03/02/19 03/02/19 Range/Units 06:45 06:45 06:45 WBC 12.4 H (4.0-10.2) K/uL RBC 5.62 H (4.33-5.41) M/uL Hgb 16.8 (13.1-16.8) g/dL Hct 47.8 (39.0-49.0) % MCV 85.1 (84.0-98.0) fL MCH 29.9 (28.2-33.3) pg MCHC 35.1 (31.7-36.0) g/dL RDW 15.4 H (11.2-14.1) % Plt Count 175 (150-350) K/uL Neut % (Auto) 57.6 (45.0-80.0) % Lymph % (Auto) 35.9 (10.0-50.0) % [place] % (Auto) 6.2 (2.0-14.0) % Eos % (Auto) 0.0 (0.0-5.0) % Baso % (Auto) 0.3 (0.0-2.0) % Neut # (Auto) 7.15 H (1.40-7.00) K/uL Lymph # (Auto) 4.46 H (0.50-3.50) K/uL [place] # (Auto) 0.77 (0.00-1.00) K/uL Eos # (Auto) 0.00 (0.00-0.50) K/uL Baso # (Auto) 0.04 (0.00-0.20) K/uL PT 12.0 (9.5-12.0) SEC INR 1.1 APTT 32.0 H (21.0-31.3) SEC Sodium 138 (136-145) mmol/L Potassium 4.5 (3.5-5.1) mmol/L Chloride 101 (98-107) mmol/L Carbon Dioxide 25.9 (21.0-32.0) mmol/L BUN 9 (7-18) mg/dL Creatinine 0.71 (0.51-1.17) mg/dL Est Cr Clr Drug Dosing 180.64 mL/min Estimated GFR (MDRD) > 60 mL/min Glucose 185 H (74-106) mg/dL Hemoglobin A1c (4.3-5.7) % Lactic Acid (0.4-2.0) mmol/L Calcium 8.6 (8.5-10.1) mg/dL Total Bilirubin 2.4 H (0.2-1.0) mg/dL Direct Bilirubin 1.8 H (0.0-0.2) mg/dL Indirect Bilirubin 0.6 AST 124 H (15-37) U/L ALT 267 H (12-78) U/L Alkaline Phosphatase 184 H (46-116) IU/L Total Protein 7.5 (6.4-8.2) g/dL Albumin 2.9 L (3.4-5.0) g/dL Amylase 497 H (25-115) U/L Lipase 4285 H (73-393) U/L TSH, Ultra Sensitive (0.358-3.740) mIU/mL Monoscreen (NEGATIVE) 03/02/19 03/02/19 Range/Units 06:45 06:45 WBC (4.0-10.2) K/uL RBC (4.33-5.41) M/uL Hgb (13.1-16.8) g/dL Hct (39.0-49.0) % MCV (84.0-98.0) fL MCH (28.2-33.3) pg MCHC (31.7-36.0) g/dL RDW (11.2-14.1) % Plt Count (150-350) K/uL Neut % (Auto) (45.0-80.0) % Lymph % (Auto) (10.0-50.0) % [place] % (Auto) (2.0-14.0) % Eos % (Auto) (0.0-5.0) % Baso % (Auto) (0.0-2.0) % Neut # (Auto) (1.40-7.00) K/uL Lymph # (Auto) (0.50-3.50) K/uL [place] # (Auto) (0.00-1.00) K/uL Eos # (Auto) (0.00-0.50) K/uL Baso # (Auto) (0.00-0.20) K/uL PT (9.5-12.0) SEC INR APTT (21.0-31.3) SEC Sodium (136-145) mmol/L Potassium (3.5-5.1) mmol/L Chloride (98-107) mmol/L Carbon Dioxide (21.0-32.0) mmol/L BUN (7-18) mg/dL Creatinine (0.51-1.17) mg/dL Est Cr Clr Drug Dosing mL/min Estimated GFR (MDRD) mL/min Glucose (74-106) mg/dL Hemoglobin A1c (4.3-5.7) % Lactic Acid 1.5 (0.4-2.0) mmol/L Calcium (8.5-10.1) mg/dL Total Bilirubin (0.2-1.0) mg/dL Direct Bilirubin (0.0-0.2) mg/dL Indirect Bilirubin AST (15-37) U/L ALT (12-78) U/L Alkaline Phosphatase (46-116) IU/L Total Protein (6.4-8.2) g/dL Albumin (3.4-5.0) g/dL Amylase 501 H (25-115) U/L Lipase (73-393) U/L TSH, Ultra Sensitive (0.358-3.740) mIU/mL Monoscreen (NEGATIVE) Alejandro Results Last 24 Hours: Microbiology 03/01/19 11:40 Group A Streptococcus Rapid Screen - Final Throat NEGATIVE STREP A SCREEN REFERENCE RANGE: NEGATIVE Microbiology 03/01/19 11:40 Throat Quick Strep Confirmation Culture - Preliminary NO GROUP A STREP ISOLATED REFERENCE RANGE: NEGATIVE 03/01/19 11:40 Throat Group A Streptococcus Rapid Screen - Final NEGATIVE STREP A SCREEN REFERENCE RANGE: NEGATIVE Med Orders - Current: Current Medications Acetaminophen (Tylenol) 650 mg PO Q4H PRN PRN Reason: Pain (Mild 1-3)/fever Last Admin: 03/01/19 21:37 Dose: 650 mg Amlodipine Besylate (Norvasc) 5 mg PO BEDTIME MINESH Last Admin: 03/01/19 21:38 Dose: 5 mg Diatrizoate Meglum/Diatrizoate Sod (Gastrografin 37%) 30 ml PO ONETIME ONE Stop: 03/02/19 08:50 Lactated Ringer's (Ringers, Lactated) 1,000 mls @ 100 mls/hr IV ASDIRECTED [facility] Last Admin: 03/02/19 00:14 Dose: 100 mls/hr Lidocaine HCl (Xylocaine 2% Viscous) 5 ml PO Q6H PRN PRN Reason: Sore Throat Methylprednisolone Sodium Succinate (Solu-Medrol) 125 mg IVPUSH Q12H [facility] Last Admin: 03/02/19 00:08 Dose: 125 mg Metoprolol Succinate (Toprol Xl) 25 mg PO ONETIME ONE Stop: 03/02/19 08:52 Metoprolol Succinate (Toprol Xl) 75 mg PO DAILY [facility] Ondansetron HCl (Zofran) 4 mg IVPUSH Q6H PRN PRN Reason: Nausea/Vomiting Pantoprazole Sodium (Protonix Iv) 40 mg IVPUSH Q12H [facility] Last Admin: 03/02/19 00:14 Dose: 40 mg Sodium Chloride (Saline Flush) 10 ml FLUSH ASDIRECTED PRN PRN Reason: Keep Vein Open Last Admin: 03/02/19 00:08 Dose: 10 ml Sodium Chloride (Saline Flush) 10 ml FLUSH Q12H PRN PRN Reason: Keep Vein Open Temazepam (Restoril) 15 mg PO BEDTIME PRN PRN Reason: Insomnia Discontinued Medications Lactated Ringer's (Ringers, Lactated) 1,000 mls @ 999 mls/hr IV .BOLUS ONE Stop: 03/01/19 13:06 Last Admin: 03/01/19 12:15 Dose: 999 mls/hr Labetalol HCl (Normodyne) 10 mg IVPUSH ONETIME ONE; Protocol Stop: 03/01/19 21:12 Last Admin: 03/01/19 21:38 Dose: 10 mg Methylprednisolone Sodium Succinate (Solu-Medrol) 125 mg IVPUSH ONETIME ONE Stop: 03/01/19 12:21 Last Admin: 03/01/19 12:30 Dose: 125 mg Metoprolol Succinate (Toprol Xl) 50 mg PO ONETIME ONE Stop: 03/01/19 12:16 Last Admin: 03/01/19 12:27 Dose: 50 mg Metoprolol Succinate (Toprol Xl) 50 mg PO DAILY MINESH Metoprolol Tartrate (Lopressor) 5 mg IVPUSH ONETIME ONE Stop: 03/01/19 11:52 Last Admin: 03/01/19 12:06 Dose: 5 mg Ondansetron HCl (Zofran) 4 mg IVPUSH ONETIME ONE Stop: 03/01/19 12:01 Last Admin: 03/01/19 12:04 Dose: 4 mg - Exam Quality Assessment: DVT Prophylaxis. No: Supplemental Oxygen, Central Line/PICC , Urine Catheter, Skin Breakdown, Restraints General: Alert, Oriented, Cooperative, No Acute Distress HEENT: Pupils Equal, Pupils Reactive, EOMI, Mucous Membr. Moist/[place], Scleral Icterus (Borderline) Neck: Supple, Trachea Midline, No JVD, No Thyromegaly, +2 Carotid Pulse wo Bruit. No: Lymphadenopathy Lungs: Clear to Auscultation, Normal Respiratory Effort. No: Rub Cardiovascular: Regular Rate, Regular Rhythm, No Murmurs. No: Gallops, Rubs GI/Abdominal Exam: Normal Bowel Sounds, Soft, Non-Tender, No Organomegaly, No Distention, No Abnormal Bruit, No Mass, Other (Obese. Hepatosplenomegaly). No: Guarding (Male) Exam: Deferred Back Exam: Normal Inspection, Full Range of Motion. No: CVA Tenderness (L), CVA Tenderness (R), Muscle Spasm Extremities: Normal Inspection, Normal Range of Motion, Non-Tender, No Pedal Edema, Normal Capillary Refill. No: Wilman's Sign Peripheral Pulses: 2+: Radial (L), Radial (R), Dorsalis Pedis (L), Dorsalis Pedis (R) Skin: Warm, Dry, Intact. No: Ecchymosis Neurological: No New Focal Deficit Psy/Mental Status: Alert, Normal Affect, Normal Mood. No: Agitated, Hallucinations, Withdrawal Symptoms - Problem List & Annotations (1) Mononucleosis SNOMED Code(s): 754823012 Code(s): B27.90 - INFECTIOUS MONONUCLEOSIS, UNSPECIFIED WITHOUT COMPLICATION Status: Acute Priority: High Current Visit: Yes Onset Date: ~03/01/19 Qualifiers: Infectious mononucleosis etiology: unspecified organism Infectious mononucleosis complication: other complications Qualified Code(s): B27.99 - Infectious mononucleosis, unspecified with other complication Annotation/Comment:: He feels much better today with no abdominal pain, nausea, etc. despite elevated lipase and amylase today. No clinical evidence of pancreatitis based on today's exam. Note that his symptoms have been present for 6 to 8 weeks as per emergency room note. His significant other does have a history of mononucleosis, however no current symptoms. The patient was encouraged to have his significant other obtain a mononucleosis titer NOMI with other individuals also to be screened, if exposed. Secondary to significant LFTs elevation, significant clinical findings, etc. high-dose IV Solu-Medrol therapy was initiated in the emergency room. Only mild low-grade fever on admission with no direct evidence of bacterial infection or indication for antibiotics at this time. Blood cultures x 2 were collected. Note negative strep screen. (2) Elevated LFTs SNOMED Code(s): 924680444, 732359521 Code(s): R94.5 - ABNORMAL RESULTS OF LIVER FUNCTION STUDIES Status: Acute Priority: High Current Visit: Yes Onset Date: 03/01/19 Annotation/ Comment:: Persistent moderately elevated LFTs, including hyperbilirubinemia, likely secondary to his mononucleosis with significant lipase and amylase and mild direct bilirubin elevations. LFTs elevations have improved with IV Solu- Medrol therapy with additional significant improvement clinical findings as above. Evidence of hepatomegaly by x-ray on admission with ultrasound not available in this facility until next week. Secondary to significant amylase and lipase elevations CT scan of the abdomen with IV and oral contrast has been ordered this morning. Injury precautions to be given at discharge secondary to possibility of splenomegaly with mononucleosis with patient's care to be assumed by [facility] physician later today. Repeat blood work in the a.m. Note normal glycosylated hemoglobin despite recent history of polydipsia. Lipid profile would not be accurate at this time secondary to his current acute hepatitis from his mononucleosis. Consider lipid panel by his regular providers after current symptoms have resolved. INR is normal with only minimally elevated PTT at this time. (3) Dehydration SNOMED Code(s): 12979269 Code(s): E86.0 - DEHYDRATION Status: Acute Priority: High Current Visit : Yes Onset Date: 03/01/19 Annotation/Comment:: 1 L IV bolus of lactated Ringer's given in the emergency room. Continue aggressive IV hydration during the initial phases of this hospitalization. Dehydration resolved by clinical exam of 03/02. (4) Sinus tachycardia SNOMED Code(s): 36777311 Code(s): R00.0 - TACHYCARDIA, UNSPECIFIED Status: Acute Priority: High Current Visit: Yes Onset Date: 03/01/19 Annotation/Comment:: Persistent problems with mild tachycardia and hypertension despite additional Norvasc and low-dose IV Normodyne therapy yesterday evening. His Toprol XL therapy will be increased this morning. Continue telemetry and close observation of his blood pressures. Note that IV Lopressor and oral Toprol-XL given in the emergency room. In addition, he has a long been noncompliant with his antihypertensive therapy prior to admission with medication compliance strongly encouraged this morning. (5) ADHD SNOMED Code(s): 880935194 Code(s): F90.9 - ATTENTION-DEFICIT HYPERACTIVITY DISORDER, UNSPECIFIED TYPE Status: Chronic Priority: Medium Current Visit: No Qualifiers: Attention deficit-hyperactivity disorder type: predominantly inattentive Qualified Code(s): F90.0 - Attention-deficit hyperactivity disorder, predominantly inattentive type Annotation/Comment:: Not currently under medical therapy. Stable by patient history. Observe for now. (6) Hypertension SNOMED Code(s): 26921019 Code(s): I10 - ESSENTIAL (PRIMARY) HYPERTENSION Status: Acute Priority: High Current Visit: Yes Qualifiers: Hypertension type: essential hypertension Qualified Code(s): I10 - Essential (primary) hypertension Annotation/Comment:: As above (7) Hypoalbuminemia SNOMED Code(s): 180328163 Code(s): E88.09 - OTH DISORDERS OF PLASMA-PROTEIN METABOLISM, NEC Status: Acute Priority: Medium Current Visit: Yes Onset Date: ~03/02/19 Annotation/Comment:: Observe for now. - Problem List Review Problem List Initiated/Reviewed/Updated: Yes - My Orders Last 24 Hours: My Active Orders 03/01/19 11:40 CULTURE STREP A CONFIRMATION [RM] Stat STREP SCRN A RAPID W CULT CONF [RM] Stat 03/01/19 11:44 Cardiac Monitoring [RC] Q2HR 03/01/19 11:45 CULTURE BLOOD [BC] Stat 03/01/19 11:52 Peripheral IV Care [RC] . DIRECTED Sodium Chloride 0.9% [Saline Flush] 10 ml FLUSH ASDIRECTED PRN Peripheral IV Insertion Adult [OM.PC] Routine 03/01/19 12:00 Abdomen Series w Chest 1V [CR] Routine 03/01/19 12:09 Blood Culture x2 Reflex Set [OM.PC] Urgent 03/01/19 12:36 CULTURE BLOOD [BC] Stat 03/01/19 13:07 Anti-Embolism Stockings AK [Antiembolic Hose] [OM.PC] Routine Resuscitation Status Routine 03/01/19 13:08 DVT/VTE Prophylaxis Reflex [OM.PC] Routine 03/01/19 13:09 Daily Weight [Height and Weight] [RC] DAILY Intake and Output Strict [RC] ASDIRECTED GM Immunization Reflex [OM.PC] Click To Edit 03/01/19 13:10 Oxygen Therapy [RC] 2300 Pulse Oximetry [RC] ASDIRECTED 03/01/19 13:11 Up With Assistance [RC] ASDIRECTED Vital Signs [RC] Q6HR Acetaminophen [Tylenol] 650 mg PO Q4H PRN Ondansetron [Zofran] 4 mg IVPUSH Q6H PRN Sodium Chloride 0.9% [Saline Flush] 10 ml FLUSH Q12H PRN Temazepam [Restoril] 15 mg PO BEDTIME PRN 03/01/19 13:14 Antiembolic Devices [RC] 08,20 VTE/DVT Education [RC] PER UNIT ROUTINE Vaccines to be Administered [RC] PER UNIT ROUTINE 03/01/19 13:15 Lactated Ringers [Ringers, Lactated] 1,000 ml IV ASDIRECTED Lidocaine 2% [Xylocaine 2% Viscous] 5 ml PO Q6H PRN Pantoprazole [ProTONIX IV] 40 mg IVPUSH Q12H 03/01/19 13:17 Communication Order [RC] ROUTINE 03/01/19 21:10 amLODIPine [Norvasc] 5 mg PO BEDTIME 03/01/19 23:00 methylPREDNISolone Sod Succ [Solu-MEDROL] 125 mg IVPUSH Q12H 03/01/19 Lunch Heart Healthy Diet [DIET] 03/02/19 08:33 Abdomen Pelvis w Cont [CT] Stat 03/02/19 08:49 Diatrizoate Amber/Diatrizoate Na [Gastrografin 37%] 30 ml PO ONETIME ONE 03/02/19 08:51 Metoprolol Succinate [Toprol XL] 25 mg PO ONETIME ONE 03/03/19 05:11 CBC WITH AUTO DIFF [HEME] Routine COMPREHENSIVE METABOLIC PN,CMP [CHEM] Routine LIPASE [CHEM] Routine 03/03/19 08:00 Metoprolol Succinate [Toprol XL] 75 mg PO DAILY - Assessment Assessment:: As above - Plan Plan:: As above. Extensive precautions were given to the patient, who is in agreement with the treatment plan. The patient will require about 1-2days of inpatient/ acute care secondary to multiple health problems as above. Ferdinand jones physician assumes care later today.
[2019-03-02] MEDS ORDERED: Metoprolol Succinate 50 MG Tab.ER PO ONE (10:12)
[2019-03-02] MEDS: Iopamidol 612 MG/ML 100 ML Bottle IVPUSH ONE ×2 (10:14→10:22)
[2019-03-02] MEDS: amLODIPine 5 MG Tab PO SCH (19:52)
[2019-03-02] MEDS: Acetaminophen 325 MG Tab PO PRN (23:07)
[2019-03-03] MEDS: Sodium Chloride 0.9% 10 ML Syringe FLUSH PRN (02:00)
[2019-03-03] MEDS: Pantoprazole 40 MG Vial IVPUSH SCH (02:00)
[2019-03-03 07:49] LABS: CHLORIDE,CL 103 mmol/L (98-107); SODIUM,NA 139 mmol/L (136-145)
[2019-03-03] MEDS ORDERED: Metoprolol Succinate 50 MG Tab.ER PO SCH (08:00)
--- NOTE | 2019-03-03 09:53 | PCM.DCSUM1 ---
Discharge Summary - Hospital Course Brief History: Patient admitted for rehydration after experiencing continues sore throat and malaise for the last 6-8 weeks. Noted to be + for [place]. Elevated LFTs also noted. Diagnosis: Stroke: No - Discharge Data Discharge Date: 03/03/19 Discharge Disposition: Home, Self-Care 01 Condition: Good - Discharge Diagnosis/Problem(s) (1) Dehydration SNOMED Code(s): 01773200 ICD Code: E86.0 - DEHYDRATION Status: Acute Priority: [facility] Current Visit: Yes Onset Date: 03/01/19 Problem Details: Hydration status appears to have normalized s/p IV fluid bolus and maintenance fluids. Patient urinating well. Hgb concentration improved from ove 18 to 16.3 (2) Elevated LFTs SNOMED Code(s): 273673047, 475801291 ICD Code: R94.5 - ABNORMAL RESULTS OF LIVER FUNCTION STUDIES Status: Acute Priority: [facility] Current Visit: Yes Onset Date: 03/01/19 Problem Details : Persistent moderately elevated LFTs, including hyperbilirubinemia, likely secondary to his mononucleosis with significant lipase and amylase and mild direct bilirubin elevations. Recheck recommended for Tuesday of this week with local primary provider. LFTs elevations have improved with IV Solu-Medrol therapy with additional significant improvement clinical findings as above. Pending hepatitis screen which was sent out today. Evidence of hepatomegaly by x -ray on admission with ultrasound not available in this facility until next week. Secondary to significant amylase and lipase elevations CT scan performed. Noted to have borderline pancreatitis along with free fluid in abdomen and splenomegaly. Injury precautions to be given at discharge secondary to possibility of splenomegaly with mononucleosis. Note normal glycosylated hemoglobin despite recent history of polydipsia and elevated blood glucose. Lipid profile would not be accurate at this time secondary to his current acute hepatitis from his mononucleosis. Consider lipid panel by his regular providers after current symptoms have resolved. (3) Mononucleosis SNOMED Code(s): 403123810 ICD Code: B27.90 - INFECTIOUS MONONUCLEOSIS, UNSPECIFIED WITHOUT COMPLICATION Status: Acute Priority: [facility] Current Visit: Yes Onset Date : ~03/01/19 Problem Details: He feels much better today with no abdominal pain , nausea, etc. despite elevated lipase and amylase. No clinical evidence of pancreatitis based on today's exam. Note that his symptoms have been present for 6 to 8 weeks as per emergency room note. His significant other does have a history of mononucleosis, however no current symptoms. The patient was encouraged to have his significant other obtain a mononucleosis titer NOMI with other individuals also to be screened, if exposed. Secondary to significant LFTs elevation, significant clinical findings, etc. high-dose IV Solu-Medrol therapy was initiated in the emergency room. Only mild low-grade fever on admission with no direct evidence of bacterial infection or indication for antibiotics at this time. Blood cultures x 2 were collected and are currently negative. Note negative strep screen. Qualifiers: Infectious mononucleosis etiology: unspecified organism Infectious mononucleosis complication: other complications Qualified Code(s): B27.99 - Infectious mononucleosis, unspecified with other complication (4) Hypertension SNOMED Code(s): 81261716 ICD Code: I10 - ESSENTIAL (PRIMARY) HYPERTENSION Status: Acute Priority: High Current Visit: Yes Problem Details: Improved s/p hydration and Toprol XL. Will continue patient on Toprol XL and Norvasc. He is instructed to get a home BP monitor and keep a regular diary of BP readings that can be shared with primary provider. Qualifiers: Hypertension type: essential hypertension Qualified Code(s): I10 - Essential (primary) hypertension (5) Hypoalbuminemia SNOMED Code(s): 646711028 ICD Code: E88.09 - OTH DISORDERS OF PLASMA-PROTEIN METABOLISM, NEC Status: Acute Priority: Medium Current Visit: Yes Onset Date: ~03/02/19 Problem Details: Observe for now. To follow up with primary provider. (6) Sinus tachycardia SNOMED Code(s): 41537286 ICD Code: R00.0 - TACHYCARDIA, UNSPECIFIED Status: Acute Priority: High Current Visit: Yes Onset Date: 03/01/19 Problem Details: Persistent problems with mild tachycardia and hypertension improved significantly. Suspect these problems were in part due to dehydration/volume changes in addition to predisposition for hypertension. He was started on a BP while serving in the [employer]. Patient reports that he ended up discontinuing his BP meds while in the [employer] due to his Captain informing him that he was all better and didn't need them anymore. (7) ADHD SNOMED Code(s): 567599017 ICD Code: F90.9 - ATTENTION-DEFICIT HYPERACTIVITY DISORDER, UNSPECIFIED TYPE Status: Chronic Priority: Medium Current Visit: No Problem Details: Not currently under medical therapy. Stable by patient history. Observe for now. Qualifiers: Attention deficit-hyperactivity disorder type: predominantly inattentive Qualified Code(s): F90.0 - Attention-deficit hyperactivity disorder, predominantly inattentive type (8) Hyperglycemia SNOMED Code(s): 23887712 ICD Code: R73.9 - HYPERGLYCEMIA, UNSPECIFIED Status: Acute Priority: Medium Current Visit: Yes Problem Details: Normal A1C. Suspect this is due to current infection as well as mild pancreatitis. Patient will need to have this followed to make certain that blood glucose levels return to normal once his liver functions and amylase/lipase return to normal levels. - Patient Summary/Data Complications: none Recommended Follow-up Testing/Procedures: Recheck labs in one week on Tuesday with primary provider. Hospital Course: Significant overall improvement in feelings of malaise and dehydration achieved over several days of inpatient care. Patient requests to go home to [place] today as his ride is leaving. He feels well enough to go home and will follow up locally for continued care. Labs also improved. WBC remains elevated but has diminished significantly. Bili improved from 3.6 to 1.3. AST, ALT, Amylase,Alk Phos, and Lipase also significantly improved. BP improved also. Tachycardia resolved. Suspect that all of the above was a result of a [place] infection, however a Hepatitis screening panel was requested and results are pending. Patient will be continued on antihypertensives and is to start monitoring his BPs at home. Lifestyle and diet modifications were reviewed with the patient that will help him address his blood pressure elevation. He will also need to see if his elevated blood sugars resolve once his liver/pancreas numbers return to baseline. It is recommended that he follow up next Tuesday for recheck and repeat labs locally in [place]. Patient is agreeable with the above plan and informs us that he will make the appropriate appointment. - Patient Instructions Diet: Heart Healthy Diet (Lower carb/low processed food diet recommended) Activity: As Tolerated Driving: May Drive Today Showering/Bathing: May Shower Other/Special Instructions: Make a follow up appointment with a primar care provider to get rechecked next Tuesday. Labs will need to be repeated for your liver and pancreas. Get a home BP monitor and keep a diary as instructed. Dietary changes as discussed to assist with blood pressure and accompanying risk factors. Follow up otherwise as needed if you experiencing sudden worsening of your symptoms. - Discharge Plan *PRESCRIPTION DRUG MONITORING PROGRAM REVIEWED*: Not Applicable *COPY OF PRESCRIPTION DRUG MONITORING REPORT IN PATIENT [place]: Not Applicable Prescriptions/Med Rec: amLODIPine [Norvasc] 5 mg PO BEDTIME #30 tablet Metoprolol Succinate [Toprol XL 50mg] 50 mg PO DAILY #30 tab.er Home Medications: Home Meds Metoprolol Succinate [Toprol XL 50mg] 50 mg PO DAILY #30 tab.er 03/03/19 [Rx] amLODIPine [Norvasc] 5 mg PO BEDTIME #30 tablet 03/03/19 [Rx] Patient Handouts: Metoprolol extended-release tablets, Labetalol injection, Infectious Mononucleosis, Qqse-gu-Rety, Amlodipine tablets, Hypertension Forms: ED Department Discharge Referrals: PCP,Unknown [Primary Care Provider] - - Discharge Summary/Plan Comment DC Time >30 min.: No - General Info Date of Service: 03/03/19 Admission Dx/Problem (Free Text: 1. Mononucleosis 2. LFTs elevation 3. Hypertension 4. Dehydration 5. Sinus tachycardia Subjective Update: Feels much improved. No acute complaints. Functional Status: Reports: Pain Controlled, Tolerating Diet, Ambulating, Urinating. Denies: New Symptoms - Review of Systems General: Reports: No Symptoms HEENT: Reports: Sore Throat (improved) Pulmonary: Reports: No Symptoms Cardiovascular: Reports: No Symptoms Gastrointestinal: Reports: No Symptoms Genitourinary: Reports: No Symptoms Musculoskeletal: Reports: No Symptoms Skin: Reports: No Symptoms Neurological: Reports: No Symptoms Psychiatric: Reports: No Symptoms - Patient Data Vitals - Most Recent: Last Vital Signs Temp 36.9 C 03/03/19 06:00 Pulse 94 03/03/19 07:11 Resp 20 03/03/19 06:00 BP 148/85 H 03/03/19 07:11 Pulse Ox 94 L 03/03/19 06:00 Weight - Most Recent: 101.469 kg I&O - Last 24 hours: Intake & Output 03/02/19 03/03/19 03/03/19 22:59 06:59 14:59 Intake Total 1385 1056 Balance 1385 1056 Lab Results - Last 24 hrs: Laboratory Results - last 24 hr 03/03/19 03/03/19 03/03/19 Range/Units 07:14 07:14 07:14 WBC 13.3 H (4.0-10.2) K/uL RBC 5.57 H (4.33-5.41) M/uL Hgb 16.3 (13.1-16.8) g/dL Hct 47.3 (39.0-49.0) % MCV 84.9 (84.0-98.0) fL MCH 29.3 (28.2-33.3) pg MCHC 34.5 (31.7-36.0) g/dL RDW 15.8 H (11.2-14.1) % Plt Count 199 (150-350) K/uL Neut % (Auto) 62.6 (45.0-80.0) % Lymph % (Auto) 28.0 (10.0-50.0) % [place] % (Auto) 9.3 (2.0-14.0) % Eos % (Auto) 0.0 (0.0-5.0) % Baso % (Auto) 0.1 (0.0-2.0) % Neut # (Auto) 8.34 H (1.40-7.00) K/uL Lymph # (Auto) 3.74 H (0.50-3.50) K/uL [place] # (Auto) 1.24 H (0.00-1.00) K/uL Eos # (Auto) 0.00 (0.00-0.50) K/uL Baso # (Auto) 0.02 (0.00-0.20) K/uL Sodium 139 (136-145) mmol/L Potassium 4.9 (3.5-5.1) mmol/L Chloride 103 (98-107) mmol/L Carbon Dioxide 26.7 (21.0-32.0) mmol/L BUN 12 (7-18) mg/dL Creatinine 0.63 (0.51-1.17) mg/dL Est Cr Clr Drug Dosing 203.58 mL/min Estimated GFR (MDRD) > 60 mL/min Glucose 179 H (74-106) mg/dL Calcium 8.5 (8.5-10.1) mg/dL Magnesium 2.2 (1.8-2.4) mg/dL Total Bilirubin 1.3 H (0.2-1.0) mg/dL AST 118 H (15-37) U/L ALT 284 H (12-78) U/L Alkaline Phosphatase 162 H (46-116) IU/L Total Protein 7.3 (6.4-8.2) g/dL Albumin 2.9 L (3.4-5.0) g/dL Amylase 121 H (25-115) U/L Lipase 848 H (73-393) U/L LEE Results - Last 24 hrs: Microbiology 03/01/19 11:40 Quick Strep Confirmation Culture - Final Throat NO GROUP A STREP ISOLATED REFERENCE RANGE: NEGATIVE Group A Streptococcus Rapid Screen - Final NEGATIVE STREP A SCREEN REFERENCE RANGE: NEGATIVE 03/01/19 12:36 Aerobic Blood Culture - Preliminary Blood - Venous - Lab Draw NO GROWTH AFTER 1 DAY Anaerobic Blood Culture - Preliminary NO GROWTH AFTER 1 DAY 03/01/19 11:45 Aerobic Blood Culture - Preliminary Blood - Venous NO GROWTH AFTER 1 DAY Anaerobic Blood Culture - Preliminary NO GROWTH AFTER 1 DAY Med Orders - Current: Current Medications Acetaminophen (Tylenol) 650 mg PO Q4H PRN PRN Reason: Pain (Mild 1-3)/fever Last Admin: 03/02/19 23:07 Dose: 650 mg Amlodipine Besylate (Norvasc) 5 mg PO BEDTIME [facility] Last Admin: 03/02/19 19:52 Dose: 5 mg Lactated Ringer's (Ringers, Lactated) 1,000 mls @ 100 mls/hr IV ASDIRECTED [facility] Last Admin: 03/02/19 23:07 Dose: 100 mls/hr Lidocaine HCl (Xylocaine 2% Viscous) 5 ml PO Q6H PRN PRN Reason: Sore Throat Last Admin: 03/02/19 23:08 Dose: 5 ml Methylprednisolone Sodium Succinate (Solu-Medrol) 125 mg IVPUSH Q12H [facility] Last Admin: 03/02/19 23:08 Dose: 125 mg Metoprolol Succinate (Toprol Xl) 75 mg PO DAILY [facility] Last Admin: 03/03/19 07:11 Dose: 75 mg Ondansetron HCl (Zofran) 4 mg IVPUSH Q6H PRN PRN Reason: Nausea/Vomiting Pantoprazole Sodium (Protonix Iv) 40 mg IVPUSH Q12H [facility] Last Admin: 03/03/19 02:00 Dose: 40 mg Sodium Chloride (Saline Flush) 10 ml FLUSH ASDIRECTED PRN PRN Reason: Keep Vein Open Last Admin: 03/03/19 02:00 Dose: 10 ml Sodium Chloride (Saline Flush) 10 ml FLUSH Q12H PRN PRN Reason: Keep Vein Open Temazepam (Restoril) 15 mg PO BEDTIME PRN PRN Reason: Insomnia Discontinued Medications Diatrizoate Meglum/Diatrizoate Sod (Gastrografin 37%) 30 ml PO ONETIME ONE Stop: 03/02/19 08:50 Last Admin: 03/02/19 10:15 Dose: 30 ml Lactated Ringer's (Ringers, Lactated) 1,000 mls @ 999 mls/hr IV .BOLUS ONE Stop: 03/01/19 13:06 Last Admin: 03/01/19 12:15 Dose: 999 mls/hr Iopamidol (Isovue-300 (61%)) 100 ml IVPUSH ONETIME ONE Stop: 03/02/19 08:52 Last Admin: 03/02/19 10:22 Dose: Not Given Labetalol HCl (Normodyne) 10 mg IVPUSH ONETIME ONE; Protocol Stop: 03/01/19 21:12 Last Admin: 03/01/19 21:38 Dose: 10 mg Methylprednisolone Sodium Succinate (Solu-Medrol) 125 mg IVPUSH ONETIME ONE Stop: 03/01/19 12:21 Last Admin: 03/01/19 12:30 Dose: 125 mg Metoprolol Succinate (Toprol Xl) 50 mg PO ONETIME ONE Stop: 03/01/19 12:16 Last Admin: 03/01/19 12:27 Dose: 50 mg Metoprolol Succinate (Toprol Xl) 50 mg PO DAILY MINESH Last Admin: 03/02/19 14:55 Dose: Not Given Metoprolol Succinate (Toprol Xl) 25 mg PO ONETIME ONE Stop: 03/02/19 08:52 Last Admin: 03/02/19 11:15 Dose: 25 mg Metoprolol Succinate (Toprol Xl) 50 mg PO ONETIME ONE Stop: 03/02/19 10:13 Last Admin: 03/02/19 11:15 Dose: 50 mg Metoprolol Tartrate (Lopressor) 5 mg IVPUSH ONETIME ONE Stop: 03/01/19 11:52 Last Admin: 03/01/19 12:06 Dose: 5 mg Ondansetron HCl (Zofran) 4 mg IVPUSH ONETIME ONE Stop: 03/01/19 12:01 Last Admin: 03/01/19 12:04 Dose: 4 mg - Exam General: Reports: Alert, Oriented, Cooperative, No Acute Distress HEENT: Reports: Pupils Equal, Pupils Reactive, EOMI, Mucous Membr. Moist/[place] Neck: Reports: Supple Lungs: Reports: Clear to Auscultation, Normal Respiratory Effort Cardiovascular: Reports: Regular Rate, Regular Rhythm GI/Abdominal Exam: Normal Bowel Sounds, Soft, Non-Tender, No Distention (Male) Exam: Deferred Rectal (Males) Exam: Deferred Back Exam: Reports: Normal Inspection Extremities: Normal Inspection, Normal Range of Motion, Non-Tender, No Pedal Edema, Normal Capillary Refill Skin: Reports: Warm, Dry, Intact Neurological: Reports: No New Focal Deficit Psy/Mental Status: Reports: Alert, Normal Affect, Normal Mood
== END 2019-03-03 10:35 | disposition home or self-care (01) | DRG 723 ==
LOC: LL.ED 11:25 → LL.MS 12:50 → UNDOADMIN 12:50
PROVIDERS: ADMIT Family Medicine; ATTEND Family Medicine
DX: B27.90 Infectious mononucleosis, unspecified without complication (principal); E86.0 Dehydration; I10 Essential (primary) hypertension; E88.09 Other disorders of plasma-protein metabolism, not elsewhere classified; R00.0 Tachycardia, unspecified; F90.9 Attention-deficit hyperactivity disorder, unspecified type; R73.9 Hyperglycemia, unspecified; K21.9 Gastro-esophageal reflux disease without esophagitis; E66.9 Obesity, unspecified; Z90.89 Acquired absence of other organs; Z79.899 Other long term (current) drug therapy; Z68.30 Body mass index [BMI] 30.0-30.9, adult
CPT/HCPCS: 36415; 74022; 74177; 80053; 80074; 82150; 82247; 82248; 83036; 83605; 83690; 83735; 84443; 85025; 85610; 85730; 86308; 87040; 87081; 87430; 96361; 96374; 96375; 99284-25; A9270-GY; C9113; J2405; J2930; J3490; J7120; Q9963; Q9967